=== PATIENT | male | born 1995 | race Two or more races ===

== ENCOUNTER 2024-08-27 13:47 | Emergency (ER) | payer OTHER, SELFPAY ==
[2024-08-27 13:55] VITALS: BP 162/97; PULSE 95; RESP 18; TEMP 36.6; O2SAT 97
--- NOTE | 2024-08-27 14:01 | XR_ITS ---
Examination: Knee, left , 3 views Technique: Knee AP, lateral, oblique 3 views Date and time of exam: August 19, 2024 1410 hours INDICATIONS: Injury to the knee today, knee pain. FINDINGS: No fracture or dislocation. No foreign body IMPRESSION: No acute fracture
--- NOTE | 2024-08-27 14:01 | XR_ITS ---
Examination: Lumbar spine 3 views Technique one AP lateral coned lateral lower lumbar spine 3 views Date and time: August 27, 2024 1415 hours INDICATIONS: Injury to the lower back today, lower back pain. FINDINGS: Adequate alignment lumbar vertebral bodies No lumbar fracture Mild disc narrowing T11-T12, T12-L1, L5-S1 No spondylolisthesis IMPRESSION: No lumbar fracture Mild disc narrowing T11-T12, T12-L1, L5-S1
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
== END 2024-08-27 16:09 | disposition home or self-care (01) ==
LOC: SERX 15:16
PROVIDERS: Emergency Provider Emergency Medicine
DX: S33.5XXA Sprain of ligaments of lumbar spine, initial encounter (principal); S83.92XA Sprain of unspecified site of left knee, initial encounter; Y04.0XXA Assault by unarmed brawl or fight, initial encounter
CPT/HCPCS: 72100; 73562; 99283